=== PATIENT | female | born 1945 | race Caucasian/White ===

== ENCOUNTER → 2020-12-11 | Outpatient (CLI) | payer MEDICARE ==
[~2020-12-11] MED LIST: PERCT PO; TRAZ-186 PO; VALA500T42 PO; [UNRECOGNIZED DRUG - OTHER] PO; [UNRECOGNIZED DRUG - OTHER] PO
== END | disposition home or self-care (01) ==
LOC: RADPV 13:37
PROVIDERS: ATTEND Internal Medicine Cardiovascular Disease
DX: I65.23 Occlusion and stenosis of bilateral carotid arteries (principal); I35.8 Other nonrheumatic aortic valve disorders
CPT/HCPCS: 93306; 93880

== ENCOUNTER 2024-04-04 03:41 | Inpatient (IN) | payer MEDICARE ==
[2024-04-04] VITALS (7 sets, daily range): BP systolic 120–153; BP diastolic 59–80; PULSE 102–120; RESP 16–20; TEMP 98.1–98.8; O2SAT 92–96
[~2024-04-04] VITALS: Ht 157.5 cm; Wt 72.7 kg
[2024-04-04 04:19] LABS: BASOPHILS % (AUTO) 0.6 % (0.0-2.0); EOSINOPHILS % (AUTO) 0.7 % (1.0-6.0); HEMATOCRIT 36.4 % (36-46); HEMOGLOBIN 12.1 g/dL (12.0-16.0); LYMPHOCYTES # (AUTO) 2.1 K/uL (1.0-4.8); LYMPHOCYTES % (AUTO) 15.7 % (22.0-44.0); MEAN CORPUSCULAR HEMOGLOBIN 38.3 pg (26.0-34.0); MEAN CORPUSCULAR HGB CONC 33.2 G/dL (31.0-37.0); MEAN CORPUSCULAR VOLUME 115 fL (80-100); MONOCYTES # (AUTO) 0.7 K/uL (0.1-1.0); MONOCYTES % (AUTO) 5.6 % (2.0-9.0); NEUTROPHILS # (AUTO) 10.2 K/uL (1.8-7.7); NEUTROPHILS % (AUTO) 77.4 % (40.0-70.0); PLATELET COUNT (AUTO) 298 K/uL (150-450); RED BLOOD CELL COUNT(AUTO) 3.16 MIL/uL (4.00-5.20); RED CELL DISTRIBUTION WIDTH 18.7 % (11.5-14.5); WHITE BLOOD COUNT (AUTO) 13.2 K/uL (4.5-11.0)
[2024-04-04 04:25] LABS: ANION GAP 10 mmol/L (8-16); CALCIUM, TOTAL 8.5 mg/dL (8.8-10.5); CARBON DIOXIDE 29 mmol/L (22-29); CHLORIDE 102 mmol/L (98-107); CREATININE 0.79 mg/dL (0.60-1.30); GLOMERULAR FILTR. RATE CALC > 60 mL/min (>60); GLUCOSE,RANDOM 126 mg/dL (70-110); POTASSIUM 3.7 mmol/L (3.5-5.1); SODIUM SERUM 141 mmol/L (136-145); UREA NITROGEN, BLOOD 9 mg/dL (7-18)
[2024-04-04 04:37] LABS: B-TYPE NATRIURETIC PEPTIDE 9 pg/mL (0-100)
[2024-04-04 04:38] LABS: TROPONIN I-HIGH SENSITIVITY 4 ng/L (<51)
[2024-04-04] MEDS: ALBUTEROL SULFATE 2.5 MG/0.5 ML NEB SOLUTION NEB ONE (05:23)
[2024-04-04] MEDS: PredniSONE 20 MG TABLET PO ONE (05:35)
[2024-04-04 05:49] LABS: COVID AG,FIA SOURCE NASAL SWAB
[2024-04-04 05:54] LABS: SARS-COV2 (COVID) ANTIGEN,FIA Negative (Negative)
[2024-04-04 05:55] LABS: INFLUENZA TYPE A NEGATIVE FOR TYPE A (NEGATIVE); INFLUENZA TYPE B NEGATIVE FOR TYPE B (NEGATIVE)
[2024-04-04] MEDS: TraMADol HCL 50 MG TABLET PO ONE (06:14)
[2024-04-04] MEDS ORDERED: MAGNESIUM HYDROXIDE SUSPENSION 30 ML UDCUP PO PRN (06:30)
[2024-04-04 06:47] LABS: APPEARANCE,URINE CLEAR (CLEAR); BILIRUBIN,URINE NEGATIVE (NEGATIVE); COLOR,URINE YELLOW (YELLOW); GLUCOSE, URINE (UA) NEGATIVE (NEGATIVE); KETONES,URINE NEGATIVE (NEGATIVE); LEUKOCYTE ESTERASE ,URINE NEGATIVE (NEGATIVE); NITRATE,URINE NEGATIVE (NEGATIVE); OCCULT BLOOD,URINE NEGATIVE (NEGATIVE); PROTEIN,URINE NEGATIVE (NEGATIVE); SPECIFIC GRAVITIY, URINE 1.014 (1.003-1.030); UROBILINOGEN,URINE <=1.0 mg/dL (<=1.0)
[2024-04-04 06:53] LABS: THYROID STIMULATING HORMONE 3.09 uIU/mL (0.36-3.74)
[2024-04-04] MEDS: HEPARIN SODIUM,PORCINE 5,000 UNITS/ML VIAL SQ SCH (07:50)
[2024-04-04] MEDS: FAMOTIDINE 20 MG TABLET PO SCH (09:00)
[2024-04-04] MEDS: SODIUM CHLORIDE 0.9% 1,000 ML IV ONE (11:13)
[2024-04-04] MEDS: INFLUENZA VIRUS VACCINE TVS (6MO+) 2024-25/PF 45 MCG/0.5 ML SYRINGE IM. ONE (12:58)
[2024-04-04] MEDS ORDERED: VALA500T42 PO (13:17)
[2024-04-04] MEDS ORDERED: ONDA-104 PO (13:17)
[2024-04-04] MEDS ORDERED: OMEP10CA38 PO (13:17)
[2024-04-04] MEDS ORDERED: PRAM0.259 PO (13:17)
[2024-04-04] MEDS ORDERED: SULF500T60 PO (13:17)
[2024-04-04 13:26] LABS: TROPONIN I-HIGH SENSITIVITY 4 ng/L (<51)
[2024-04-04] MEDS: TraMADol HCL 50 MG TABLET PO SCH (14:27)
[2024-04-04] MEDS: PRAMIPEXOLE DI-HCL 0.25 MG TABLET PO SCH (21:20)
[2024-04-05] VITALS (7 sets, daily range): BP systolic 95–149; BP diastolic 46–70; PULSE 99–114; RESP 16–20; TEMP 97.7–98.9; O2SAT 93–97
[2024-04-05] MEDS: TraMADol HCL 50 MG TABLET PO PRN (04:04)
[2024-04-05] MEDS ORDERED: CARV3 PO (09:51)
[2024-04-05] MEDS ORDERED: 0.9% SODIUM CHLORIDE 5 ML NEB SOLUTION NEB ONE (11:39)
[2024-04-05] MEDS: ALBUTEROL SULFATE 2.5 MG/0.5 ML NEB SOLUTION NEB PRN (11:42)
[2024-04-05 13:20] LABS: BASOPHILS % (AUTO) 0.7 % (0.0-2.0); EOSINOPHILS % (AUTO) 0.4 % (1.0-6.0); HEMATOCRIT 36.5 % (36-46); HEMOGLOBIN 12.1 g/dL (12.0-16.0); LYMPHOCYTES % (AUTO) 24.5 % (22.0-44.0); MEAN CORPUSCULAR HEMOGLOBIN 38.4 pg (26.0-34.0); MEAN CORPUSCULAR VOLUME 116 fL (80-100); MONOCYTES # (AUTO) 0.9 K/uL (0.1-1.0); MONOCYTES % (AUTO) 7.2 % (2.0-9.0); NEUTROPHILS # (AUTO) 8.2 K/uL (1.8-7.7); NEUTROPHILS % (AUTO) 67.2 % (40.0-70.0); PLATELET COUNT (AUTO) 284 K/uL (150-450); RED BLOOD CELL COUNT(AUTO) 3.15 MIL/uL (4.00-5.20); RED CELL DISTRIBUTION WIDTH 19.6 % (11.5-14.5); WHITE BLOOD COUNT (AUTO) 12.2 K/uL (4.5-11.0)
[2024-04-05] MEDS: ACETAMINOPHEN 325 MG TABLET PO PRN (16:02)
[2024-04-05] MEDS: CARVEDILOL 3.125 MG TABLET PO SCH (16:20)
[2024-04-05] MEDS: MORPHINE SULFATE 2 MG/ML SYRINGE IVP PRN (17:30)
[2024-04-05] MEDS: CARVEDILOL 3.125 MG TABLET PO ONE (20:13)
[2024-04-06 00:34] VITALS: BP 103/65; PULSE 101; RESP 16; TEMP 98.2; O2SAT 91
[2024-04-06 05:15] VITALS: BP 113/57; PULSE 99; RESP 18; TEMP 98.1; O2SAT 95
[2024-04-06 06:23] VITALS: BP 107/69; PULSE 98; RESP 17; TEMP 98.8; O2SAT 96
[2024-04-06 08:00] VITALS: BP 129/63; PULSE 99; RESP 15; TEMP 98; O2SAT 92
[2024-04-06] MEDS: CARVEDILOL 6.25 MG TABLET PO SCH (08:38)
[2024-04-06] MEDS ORDERED: CARV6 PO (11:27)
[2024-04-06 12:52] VITALS: PULSE 97; RESP 16; RESP 18; O2SAT 96; O2SAT 97
[2024-04-06 13:07] VITALS: PULSE 98; RESP 18; O2SAT 99
== END 2024-04-06 13:18 | disposition home or self-care (01) | DRG 880 ==
LOC: EDUNIT# 03:41 → EMS 03:45 → EDH 07:36 → 5S 08:17
PROVIDERS: ADMIT Internal Medicine; ATTEND Internal Medicine
DX: F41.9 Anxiety disorder, unspecified (principal); R65.10 Systemic inflammatory response syndrome (SIRS) of non-infectious origin without acute organ dysfunction; A44.9 Bartonellosis, unspecified; Z20.822 Contact with and (suspected) exposure to COVID-19
CPT/HCPCS: 71045; 71250; 74019; 80048; 81003; 83880; 84443; 84484; 85025; 85379; 85651; 87804; 93005; 93306; 94640; 99285; G0378; J1644; J2270; J7030; 36415-L1; 36415-TC; J7613

== ENCOUNTER → 2025-01-04 | Outpatient (CLI) | payer MEDICARE ==
[~2025-01-04] MED LIST changes: +GABA-1181 PO; +OMEP10CA38 PO; +ONDA-104 PO; -PERCT PO; +PRAM0.259 PO; +VALA500T34 PO; -VALA500T42 PO; -[UNRECOGNIZED DRUG - OTHER] PO; -[UNRECOGNIZED DRUG - OTHER] PO
[2025-01-04 12:33] LABS: PLATELET COUNT (AUTO) 290 K/uL (150-450); RED BLOOD CELL COUNT(AUTO) 3.15 MIL/uL (4.00-5.20); RED CELL DISTRIBUTION WIDTH 22.0 % (11.5-14.5); WHITE BLOOD COUNT (AUTO) 8.0 K/uL (4.5-11.0)
[2025-01-04 12:56] LABS: ASPARTATE AMINOTRANSFERASE 16 U/L (15-37); CALCIUM, TOTAL 9.0 mg/dL (8.8-10.5); CHOL/HDL RATIO 5.7 (3.9-5.7); CREATININE 0.50 mg/dL (0.60-1.30); GLOMERULAR FILTR. RATE CALC > 60 mL/min (>60); GLUCOSE,RANDOM 102 mg/dL (70-110); SODIUM SERUM 137 mmol/L (136-145); TOTAL PROTEIN, SERUM 6.7 g/dL (6.4-8.2); UREA NITROGEN, BLOOD 10 mg/dL (7-18)
== END | disposition home or self-care (01) ==
LOC: LABMN 12:07
PROVIDERS: ATTEND Hospitalist
DX: R42 Dizziness and giddiness (principal); Z79.899 Other long term (current) drug therapy
CPT/HCPCS: 80053; 80061; 83036; 84443; 85025

== ENCOUNTER → 2025-01-14 | Outpatient (CLI) | payer MEDICARE | END | disposition home or self-care (01) | LOC: RADPV 11:42 | PROVIDERS: ATTEND Hospitalist | DX: I65.23 Occlusion and stenosis of bilateral carotid arteries (principal); R42 Dizziness and giddiness | CPT/HCPCS: 93880 ==